=== PATIENT | female | born 1960 | race American Indian/Alaskan Native ===

== ENCOUNTER 2018-03-19 08:17 | Emergency (ER) | payer MEDICAID, OTHER, SELFPAY ==
[2018-03-19 08:27] VITALS: BP 117/69; PULSE 83; RESP 16; TEMP 37.4; O2SAT 96
--- NOTE | 2018-03-19 08:43 | ED.FALL ---
HPI - Fall General Chief Complaint: Fall Stated Complaint: HIT HEAD Time Seen by Provider: 03/19/18 08:25 Source: patient Mode of arrival: ambulatory Limitations: no limitations History of Present Illness HPI Narrative: 58-year-old female with history of AFib, hypokalemia and chronic pain presents from a local clinic for evaluation of a near syncopal episode which resulted in a fall with head and neck injury. She woke up coughing and sat up quickly and got lightheaded, falling forward and striking her head on the ground. She does not think she lost consciousness. She denies any alcohol or street drugs. She takes no blood thinners. She feels essentially okay now. She denies any fever or chills. She denies chest pain or shortness of breath. complaint: fall Onset (ago): hour(s) Fall from: out of bed Fall witnessed: no Place fall occurred: home Loss of consciousness: unsure Prolonged down time: no Symptoms prior to fall: lightheadedness Location of injury: head and neck Severity: mild Associated symptoms (after fall): denies Related Data Previous Rx's Medication Instructions Recorded hydrocodone-acetaminophen [Hancock] 1 tab PO Q4HP PRN #7 tab 11/14/16 Review of Systems Review of Systems All systems reviewed & are unremarkable except as noted in HPI and below Constitutional Denies chills, Denies fever(s), Denies lethargy and Denies weakness Eyes Denies change in vision, Denies eye discharge, Denies irritation and Denies loss of vision ENT Ears, Nose, Mouth, and Throat: Denies change in voice, Denies neck pain and Denies sore throat Cardiovascular Denies chest pain, Denies irregular heart rhythm, Denies lightheadedness, Denies palpitations, Denies dyspnea, Denies dyspnea on exertion and Denies orthopnea Comments: lightheaded Respiratory Reports cough, Denies dyspnea, Denies dyspnea on exertion and Denies wheezing Gastrointestinal Gastrointestinal: Denies abdominal pain, Denies change in bowel habits, Denies diarrhea, Denies nausea and Denies vomiting Genitourinary Denies hematuria, Denies flank pain, Denies urinary incontinence and Denies urinary urgency Musculoskeletal Denies neck pain Comments: neck pain Integumentary/Breasts Denies pruritus, Denies erythema, Denies rash and Denies wounds Neurologic Denies confusion, Denies loss of vision and Denies weakness Psychiatric Denies anxiety, Denies confusion, Denies depression, Denies homicidal ideation and Denies suicidal ideation Endocrine Denies palpitations Hematologic/Lymphatic Denies easy bruising Allergic/Immunologic Denies wheezing Exam Initial Vital Signs Initial Vital Signs: Vital Signs Temperature 99.4 F 03/19/18 08:27 Pulse Rate 83 03/19/18 08:27 Respiratory Rate 16 03/19/18 08:27 Blood Pressure 117/69 03/19/18 08:27 Pulse Oximetry 96 03/19/18 08:27 Const General: cooperative and well developed Nutritional Appearance: well nourished Orientation: alert, awake, oriented x3 and not confused [facility] Head: normocephalic and atraumatic Ears: external ears normal and TM's normal bilaterally Nose: external nose normal and No nasal discharge Face and sinus: sinuses nontender, face symmetric, no sinus tenderness and No dry mucous membranes Mouth: oral mucosae normal and moist mucous membranes Teeth and gingiva: dentition normal Throat: tonsils normal and uvula midline Eyes General: appearance normal, both eyes and all related structures Eyelids: eyelids normal Conjunctivae: conjunctivae normal Sclera: sclerae normal Pupils: PERRL EOM: EOM intact bilaterally Neck Neck: normal visual inspection, trachea midline, No lymphadenopathy, No midline deformity, tender and No JVD Lymphatic: No lymphedema Chest Chest: normal inspection of the chest Resp Effort & Inspection: normal respiratory effort, able to speak in complete sentences, no respiratory distress and no use of accessory muscles Auscultation: clear to auscultation bilaterally, no rales, no rhonchi and no wheezes Cardio Rate: regular rate Rhythm: regular rhythm Heart Sounds: no click, no gallops, no murmurs and no rubs Pulses: normal peripheral pulses GI Inspection: non-distended Palpation: soft, no hepatosplenomegaly, No guarding, No pulsatile mass and No tender Auscultation: normal bowel sounds Back/Spine/Pelvis Back: No CVA tenderness Cervical Spine: cervical ROM normal and No pain with cervical ROM Thoracic/Lumbar Spine: thoracic and lumbar spine normal to inspection Skin General: no rashes or lesions noted, No jaundice and No petechiae Neuro General: alert, oriented x3, gait normal and no focal motor deficits Speech: speech normal Extrem General: full ROM, no clubbing, cyanosis or edema, no pedal edema and no calf tenderness Psych Appearance: well kempt Mental Status: mental status grossly normal Attitude: cooperative Thought Content: normal and suicidality Judgment: judgment good [facility] Social History Smoking Status: Never smoker Course Orders Ordered: ED Orders 03/19/18 08:42 XR chest 1V Stat 03/19/18 08:50 Basic Metabolic Panel Stat 03/19/18 08:56 Complete Blood Count AUTO DIFF Stat 03/19/18 09:03 CT cervical spine wo con Stat CT head/brain wo con Stat Vital Signs - 8 hr 03/19/18 08:27 Temperature 99.4 F Pulse Rate 83 Respiratory Rate 16 Blood Pressure 117/69 Pulse Oximetry 96 MDM - Fall Lab Data Result diagrams: 03/19/18 08:56 03/19/18 08:50 Lab Results 03/19/18 03/19/18 Range/Units 08:50 08:56 WBC 15.3 H (4.5-11.0) X10^3/uL RBC 4.15 (4.0-5.2) X10^6/uL Hgb 11.7 L (12.0-16.0) g/dL Hct 35.7 L (36-46) % MCV 85.9 (80-100) fL MCH 28.3 (26-34) PG MCHC 32.9 (30-36) % RDW 14.8 (11.6-14.8) % Plt Count 309 (150-400) X10^3/uL Neut % (Auto) 94.2 H (50-75) % Lymph % (Auto) 2.3 L (25-40) % [place] % (Auto) 3.1 (3-14) % Eos % (Auto) 0.3 L (2-4) % Baso % (Auto) 0.1 (0-2) % Neut # (Auto) 74240 H (5283-3814) /uL Sodium 139 (137-145) mmol/L Potassium 4.1 (3.4-5.1) mmol/L Chloride 101 (98-107) mmol/L Carbon Dioxide 30 (22-32) mmol/L BUN 14 (7-17) mg/dL Creatinine 0.80 (0.52-1.04) mg/dL Estimated GFR > 60.0 (>60) mL/min BUN/Creatinine Ratio 17.5 (6-22) Glucose 97 (70-100) mg/dL Calcium 8.6 (8.4-10.2) mg/dL Imaging Data CT scan - head: Radiologist's impression: PROCEDURE: CT HEAD/BRAIN WO CON INDICATIONS: head injury, syncope TECHNIQUE: Noncontrast 4.5 mm thick angled axial sections acquired from the foramen magnum to the vertex, with coronal and sagittal reformats. For radiation dose reduction, the following was used: automated exposure control, adjustment of mA and/or kV according to patient size. COMPARISON: [facility], CR, XR CHEST 1V, 03/19/2018, 8:32. [facility], CT, CT CERVICAL SPINE WO CON, 03/19/2018, 8:51. FINDINGS: Image quality: Excellent. CSF spaces: Basal cisterns are patent. No extra-axial fluid collections. Ventricles are normal in size and shape. Brain: No midline shift. No intracranial masses or hemorrhage. Jackson-white matter interface is normal. Skull and face: Calvarium and visualized facial bones are intact, without suspicious lesions. Sinuses: Several changes are seen, with removal of the majority of the nasal cavity. The sierra of the maxillary sinuses appear thickened. Mild to moderate mucosal thickening can be seen within the maxillary sinuses and within the ethmoid air. No significant mastoid fluid can be seen. IMPRESSION: No acute intracranial process is seen. Paranasal sinus disease and presumed prior nasal surgery. Dictated by: Jaylon Kessler M.D. on 03/19/2018 at 8:09 Approved by: Jaylon Kessler M.D. on 03/19/2018 at 8:11 CT scan - Cervical: Radiologist's impression: PROCEDURE: CT CERVICAL SPINE WO CON INDICATIONS: fall with midline neck pain, syncope TECHNIQUE: Noncontrast 3 mm thick sections acquired from the skull base to the T4 level. Sagittal and coronal reformats were then constructed. For radiation dose reduction, the following was used: automated exposure control, adjustment of mA and/or kV according to patient size. COMPARISON: [facility], CT, CT HEAD/BRAIN WO CON, 03/19/2018, 8:51. [facility], CR, XR CHEST 1V, 03/19/2018, 8:32. FINDINGS: Image quality: Excellent. Bones: No fractures or dislocations. Visualized superior ribs are intact. Degenerative changes are seen, with at least moderate disc space narrowing at C5-C6 and C6-C7. Milder degenerative changes are seen elsewhere. Soft tissues: Prevertebral soft tissues are normal in thickness. No paravertebral hematomas. No apical pneumothoraces. IMPRESSION: No acute fractures are seen. Focal lower cervical spine degenerative change. Dictated by: Jaylon Kessler M.D. on 03/19/2018 at 8:12 Approved by: Jaylon Kessler M.D. on 03/19/2018 at 8:12 Chest x-ray: Attestation: I personally reviewed and interpreted this imaging study as follows: My impression: NAP Radiologist's impression: PROCEDURE: XR CHEST 1V INDICATIONS: cough, short of breath, fall, syncope TECHNIQUE: One view of the chest was acquired. COMPARISON: [facility], CT, CT HEAD/BRAIN WO CON, 03/19/2018, 8:51. [facility], CR, CHEST 1 VIEW, 10/12/2015, 4:04. FINDINGS: Surgical changes and devices: None. Lungs and pleura: No pleural effusions or pneumothorax. Mild interstitial prominence is seen. No focal infiltrates are seen. Mediastinum: Mediastinal contours appear normal. Heart size is normal. Bones and chest wall: No suspicious bony lesions. Age-appropriate bony degenerative changes are seen. Overlying soft tissues appear unremarkable. IMPRESSION: Interstitial prominence is seen throughout. The interstitial prominence is nonspecific, yet may be related to pulmonary edema or artifact from the low lung volumes. If there is clinical concern for a developing pulmonary process, a short-term followup chest series (with PA and lateral views, performed in deep inspiration) is suggested for further evaluation. Dictated by: Jaylon Kessler M.D. on 03/19/2018 at 8:07 ECG Data Attestation: I personally reviewed and interpreted this ECG as follows: Prior ECG tracings: not available for review Interpretation: Normal sinus rhythm, rate 77. No signs of ectopy or ischemia such as ST segmental elevation or depression nor T-wave inversions Discharge Plan Departure Patient Disposition: Home, Self-Care Clinical Impression: Sprain, neck, Near syncope Discharge Date/Time: 03/19/18 10:38 Interventions: ED Discharge Assessment Last Done: 03/19/18 10:37 Instructions: DI for Syncope in Adults (Fainting) Activity Restrictions/Additional Instructions: There is no evidence of an emergent or life threatening illness at this time, but follow up with your doctor in 1-2 days is recommended nonetheless to continue to rule out serious underlying causes of your symptoms. Please call the office for an appointment. Please return to the Emergency Department for any worsening or persistent symptoms. Please continue to take medications as directed. Prescriptions: No Action hydrocodone-acetaminophen [Hancock] 5 MG/325 MG tablet 1 tab PO Q4HP PRNQty: 7 RF: 0
[2018-03-19 09:03] LABS: Add Manual Diff / Slide Review NO; Basophils Percent Auto 0.1 % (0-2); Eosinophils Percent Auto 0.3 % (2-4); Hematocrit 35.7 % (36-46); Hemoglobin 11.7 g/dL (12.0-16.0); Lymphocytes Percent Auto 2.3 % (25-40); Mean Corpuscular HGB Conc 32.9 % (30-36); Mean Corpuscular Hemoglobin 28.3 PG (26-34); Mean Corpuscular Volume 85.9 fL (80-100); Monocytes Percent Auto 3.1 % (3-14); Neutrophils Absolute Auto 14500 /uL (3000-5900); Neutrophils Percent Auto 94.2 % (50-75); Platelet Count 309 X10^3/uL (150-400); Red Blood Cell Count 4.15 X10^6/uL (4.0-5.2); Red Cell Distribution Width 14.8 % (11.6-14.8); White Blood Cell Count 15.3 X10^3/uL (4.5-11.0)
--- NOTE | 2018-03-19 09:03 | DI.CT.S_ITS ---
PROCEDURE: CT CERVICAL SPINE WO CON INDICATIONS: fall with midline neck pain, syncope TECHNIQUE: Noncontrast 3 mm thick sections acquired from the skull base to the T4 level. Sagittal and coronal reformats were then constructed. For radiation dose reduction, the following was used: automated exposure control, adjustment of mA and/or kV according to patient size. COMPARISON: [facility], CT, CT HEAD/BRAIN WO CON, 03/19/2018, 8:51. [facility], CR, XR CHEST 1V, 03/19/2018, 8:32. FINDINGS: Image quality: Excellent. Bones: No fractures or dislocations. Visualized superior ribs are intact. Degenerative changes are seen, with at least moderate disc space narrowing at C5-C6 and C6-C7. Milder degenerative changes are seen elsewhere. Soft tissues: Prevertebral soft tissues are normal in thickness. No paravertebral hematomas. No apical pneumothoraces. IMPRESSION: No acute fractures are seen. Focal lower cervical spine degenerative change. Dictated by: Jaylon Kessler M.D. on 03/19/2018 at 8:12 Approved by: Jaylon Kessler M.D. on 03/19/2018 at 8:12
--- NOTE | 2018-03-19 09:03 | DI.CT.S_ITS ---
PROCEDURE: CT HEAD/BRAIN WO CON INDICATIONS: head injury, syncope TECHNIQUE: Noncontrast 4.5 mm thick angled axial sections acquired from the foramen magnum to the vertex, with coronal and sagittal reformats. For radiation dose reduction, the following was used: automated exposure control, adjustment of mA and/or kV according to patient size. COMPARISON: [facility], CR, XR CHEST 1V, 03/19/2018, 8:32. [facility], CT, CT CERVICAL SPINE WO CON, 03/19/2018, 8:51. FINDINGS: Image quality: Excellent. CSF spaces: Basal cisterns are patent. No extra-axial fluid collections. Ventricles are normal in size and shape. Brain: No midline shift. No intracranial masses or hemorrhage. Jackson-white matter interface is normal. Skull and face: Calvarium and visualized facial bones are intact, without suspicious lesions. Sinuses: Several changes are seen, with removal of the majority of the nasal cavity. The sierra of the maxillary sinuses appear thickened. Mild to moderate mucosal thickening can be seen within the maxillary sinuses and within the ethmoid air. No significant mastoid fluid can be seen. IMPRESSION: No acute intracranial process is seen. Paranasal sinus disease and presumed prior nasal surgery. Dictated by: Jaylon Kessler M.D. on 03/19/2018 at 8:09 Approved by: Jaylon Kessler M.D. on 03/19/2018 at 8:11
[2018-03-19 09:21] LABS: BUN Creatinine Ratio 17.5 (6-22); Blood Urea Nitrogen 14 mg/dL (7-17); Calcium 8.6 mg/dL (8.4-10.2); Carbon Dioxide 30 mmol/L (22-32); Chloride 101 mmol/L (98-107); Estimated Glomerular Filt Rate > 60.0 mL/min (>60); Glucose 97 mg/dL (70-100); HEMOLYSIS 27 (0-50); Potassium 4.1 mmol/L (3.4-5.1); Sodium 139 mmol/L (137-145)
[2018-03-19 09:57] VITALS: BP 99/57; PULSE 80; RESP 10; O2SAT 91
== END 2018-03-19 10:38 | disposition home or self-care (01) ==
PROVIDERS: Emergency Provider Emergency Medicine; Family Provider Family Medicine; PCP Family Medicine
DX: S13.9XXA Sprain of joints and ligaments of unspecified parts of neck, initial encounter (principal); R55 Syncope and collapse; W18.30XA Fall on same level, unspecified, initial encounter
CPT/HCPCS: 36591; 70450; 71045; 72125; 80048; 85025; 93005; 93010; 99283; 99285